=== PATIENT | female | born 1995 | race Hispanic/Latino ===

== ENCOUNTER 2018-01-09 10:59 | Emergency (ER) | payer MEDICAID ==
[2018-01-09 13:41] LABS: HCG Qualitative,Urine Positive (Negative)
--- NOTE | 2018-01-09 14:04 | Emergency Department Report ---
Chief Complaint: Abdominal Pain Stated Complaint: PREG./ABD PAIN Time Seen by Provider: 01/09/18 13:59 - HPI History of Present Illness: 22-year-old female presents to the emergency department with complaint of a few days of lower abdominal pain while . She had a home test that was positive about one month ago. She says her last menstrual cycle was sometime in August. The patient also complains of progressively worsening lower extremity swelling. She denies any chest pain, shortness of breath, fever. She is not on any vitamins and has not taken anything for her symptoms prior to presentation. She is not currently have any EVAPORATOR. - ROS Review of Systems: Positive for abdominal pain, lower extremity swelling, right calf pain Negative for vaginal bleeding, dysuria, vaginal discharge, chest pain or shortness of breath - Exam Vital Signs: Vital Signs 01/09/18 11:42 Temperature 98.5 F Pulse Rate 71 Blood Pressure 100/58 O2 Sat by Pulse 100 Oximetry Physical Exam: Patient does not appear in any acute distress. She does have bilateral lower extremity nonpitting swelling. Heart and lung sounds are normal to auscultation. MSE screening note: Focused history and physical exam performed. Due to findings the following was ordered: She will have a CBC, BMP and urinalysis. I have ordered bilateral lower extremity venous Dopplers to rule out DVT and an obstetric ultrasound. ED Disposition for MSE Condition: Stable Instructions: Abdominal Pain (ED) Referrals: PRIMARY CARE, [Primary Care Provider] - 3-5 Days
--- NOTE | 2018-01-09 14:11 | Emergency Department Report ---
ED General Adult HPI - General Chief complaint: Abdominal Pain Stated complaint: PREG./ABD PAIN Time Seen by Provider: 01/09/18 13:59 Source: patient Mode of arrival: Ambulatory Limitations: No Limitations - History of Present Illness Initial comments: This is a 22-year-old female who presents with abdominal cramping during . She had a home test that was positive about one month ago. She went out of town for a family emergency and was unable to make initial SERVICE SUPPORT REPRESENTATIVE appointment. Last menstrual. Was 09/18/2017. A1. The patient also complains of progressively worsening bilateral lower extremity swelling. There is some bruising to right calf and tenderness to touch. She denies any chest pain, shortness of breath, fever. She is not on any vitamins and has not taken anything for her symptoms prior to presentation. She is not currently have any SERVICE SUPPORT REPRESENTATIVE. Location: abdomen, lower extremity (bilateral lower extremity edema) Radiation: non-radiation Severity scale (0 -10): 4 Quality: other (cramping) Consistency: intermittent Improves with: none Worsens with: movement Associated Symptoms: denies other symptoms Treatments Prior to Arrival: none - Related Data Allergies Allergy/AdvReac Type Severity Reaction Status Date / Time No Known Allergies Allergy Verified 01/09/18 11:41 ED Review of Systems ROS: Stated complaint: PREG./ABD PAIN Other details as noted in HPI Constitutional: denies: chills, fever Respiratory: denies: cough, shortness of breath, wheezing Cardiovascular: edema (bilateral lower extremity). denies: chest pain, palpitations Gastrointestinal: abdominal pain (abdominal cramping generalized). denies: nausea, vomiting, diarrhea Musculoskeletal: denies: back pain, joint swelling, arthralgia Neurological: denies: headache, weakness, numbness, paresthesias Psychiatric: denies: anxiety, depression ED Past Medical Hx - Past Medical History Previous Medical History?: No - Surgical History Past Surgical History?: No - Social History Smoking Status: Never Smoker Substance Use Type: None ED Physical Exam - General Limitations: No Limitations General appearance: alert, in no apparent distress - Respiratory Respiratory exam: Present: normal lung sounds bilaterally. Absent: respiratory distress - Cardiovascular Cardiovascular Exam: Present: regular rate, normal rhythm, normal heart sounds. Absent: systolic murmur, diastolic murmur, rubs, gallop - GI/Abdominal GI/Abdominal exam: Present: soft, normal bowel sounds. Absent: organomegaly, mass - Extremities Exam Extremities exam: Present: normal inspection, full ROM, normal capillary refill , pedal edema, calf tenderness (1 cm eccymosis medial right calf, tenderness) - Neurological Exam Neurological exam: Present: alert, oriented X3, normal gait - Psychiatric Psychiatric exam: Present: normal affect, normal mood - Skin Skin exam: Present: warm, dry, intact, normal color. Absent: rash ED Course Vital Signs 01/09/18 11:42 Temperature 98.5 F Pulse Rate 71 Blood Pressure 100/58 O2 Sat by Pulse 100 Oximetry ED Medical Decision Making - Lab Data Result diagrams: 01/09/18 15:25 01/09/18 15:25 - Radiology Data Radiology results: report reviewed OB ULTRASOUND GREATER THAN 14 WEEKS INDICATION: , abdominal pain. COMPARISON: None similar at this institution. TECHNIQUE: Transabdominal grayscale ultrasound with Doppler interrogation. Gestation: Dalal Position: Variable Amniotic Fluid: WNL (< 24 weeks, subjective) Placenta: Posterior, fundal Placental Grade: 0 Heart Rate: 137 BPM Cervical length: 5.1 cm (Normal > 3 cm) It is too early for a anatomical survey BPD: 3.6 cm = 17 w 1 d HC: 13.5 cm = 17 w 0 d AC: 11.4 cm = 17 w 1 d FL: 2.1 cm = 16 w 1 d HC/AC Ratio: 1.18 Cephalic Index: 84.2 Estimated Weight: 168 grams Clinical age = 16 w 1 d EDC: 06/25/2018 US Gest. Age = 16 w 6 d EDC: 06/20/2018 CONCLUSION: Single, viable intrauterine gestation with ultrasound estimated age of 16 weeks and 6 days and EDC of 06/20/2018, currently in variable lie with details, as above. BLE VENOUS DUPLEX COMPLETED. VAS LAB PRELIMINARY REPORT; NO EVIDENCE OF DVT/SVT NOTED IN VESSELS/SEGMENTS EXAMINED, BLE. PHYSICIANS REPORT TO FOLLOW...(RSK) - Medical Decision Making 22 y.o. female presents with abdominal cramping and bilateral lower extremity edema. Patient examined by me and Dr. Delgadillo. Vitals normal and in no acute distress. Currently she is not followed by SERVICE SUPPORT REPRESENTATIVE and not taking vitamins. Obtained CBC, BMP, UA, urine hCG, & doppler BLE. OB US: Single, viable intrauterine gestation with ultrasound estimated age of 16 weeks and 6 days and EDC of 06/20/2018, currently in variable lie with details, as above. BLE VENOUS DUPLEX COMPLETED. VAS LAB PRELIMINARY REPORT; NO EVIDENCE OF DVT/SVT NOTED IN VESSELS/SEGMENTS EXAMINED, BLE. PHYSICIANS REPORT TO FOLLOW...( RSK). She had appointment with [facility]. Referrals to SERVICE SUPPORT REPRESENTATIVE. Discharged home stable. Instructed to elevate legs while sitting and avoid riding in cars for long period of times. Follow up with [facility] and OB /MARKETING OPERATIONS ASSISTANT in 48-72 hours. Critical care attestation.: If time is entered above; I have spent that time in minutes in the direct care of this critically ill patient, excluding procedure time. ED Disposition Clinical Impression: Pedal edema Abdominal pain during Qualifiers: Trimester: second trimester Qualified Code(s): O26.892 - Other specified related conditions, second trimester; R10.9 - Unspecified abdominal pain Disposition: - TO HOME OR SELFCARE Is pt being admited?: No Does the pt Need Aspirin: No Condition: Stable Instructions: Abdominal Pain (ED), (ED) Additional Instructions: Start taking an [id number] vitamins daily. Follow-up with SERVICE SUPPORT REPRESENTATIVE from referrals in 2-5 days. Elevate legs while sitting to improve swelling. Avoid riding in cars for a long period of time. If he can't get an SERVICE SUPPORT REPRESENTATIVE follow-up with [facility] in the next few days. Referrals: [facility] [Provider Group] - 3-5 Days [facility]MARKETING OPERATIONS ASSIST[facility] [Provider Group] - 3-5 Days [facility] [Outside] - 3-5 Days Time of Disposition: 17:24 Print Language: BARBADIAN
[2018-01-09 15:41] LABS: Basophils % (Auto) 0.4 % (0.0-1.8); Eosinophils % (Auto) 0.6 % (0.0-4.3); Hematocrit 32.6 % (30.3-42.9); Lymphocytes # (Auto) 1.3 K/mm3 (1.2-5.4); Lymphocytes % (Auto) 19.3 % (13.4-35.0); Mean Corpuscular HGB Conc 34 % (30-34); Mean Corpuscular Hemoglobin 31 pg (28-32); Mean Corpuscular Volume 92 fl (79-97); Monocytes # (Auto) 0.5 K/mm3 (0.0-0.8); Monocytes % (Auto) 7.1 % (0.0-7.3); Platelet Count 155 K/mm3 (140-440); Red Blood Count 3.55 M/mm3 (3.65-5.03); Red Cell Distribution Width 13.8 % (13.2-15.2)
--- NOTE | 2018-01-09 15:54 | Ultrasound Report ---
OB ULTRASOUND GREATER THAN 14 WEEKS INDICATION: , abdominal pain. COMPARISON: None similar at this institution. TECHNIQUE: Transabdominal grayscale ultrasound with Doppler interrogation. Gestation: Dalal Position: Variable Amniotic Fluid: WNL (< 24 weeks, subjective) Placenta: Posterior, fundal Placental Grade: 0 Heart Rate: 137 BPM Cervical length: 5.1 cm (Normal > 3 cm) It is too early for a anatomical survey BPD: 3.6 cm = 17 w 1 d HC: 13.5 cm = 17 w 0 d AC: 11.4 cm = 17 w 1 d FL: 2.1 cm = 16 w 1 d HC/AC Ratio: 1.18 Cephalic Index: 84.2 Estimated Weight: 168 grams Clinical age = 16 w 1 d EDC: 06/25/2018 US Gest. Age = 16 w 6 d EDC: 06/20/2018 CONCLUSION: Single, viable intrauterine gestation with ultrasound estimated age of 16 weeks and 6 days and EDC of 06/20/2018, currently in variable lie with details, as above. Thank you for the opportunity to participate in this patient's care.
[2018-01-09 16:01] LABS: BUN/Creatinine Ratio 16; Blood Urea Nitrogen 8 mg/dL (7-17); Calcium 8.8 mg/dL (8.4-10.2); Hemolysis Index 14
[2018-01-09 17:33] VITALS: BP 108/58
== END 2018-01-09 17:32 | disposition home or self-care (01) ==
LOC: ED 10:59
DX: O26.892 Other specified pregnancy related conditions, second trimester (principal); R10.9 Unspecified abdominal pain; R60.9 Edema, unspecified; Z3A.14 14 weeks gestation of pregnancy
CPT/HCPCS: 36415; 76801; 80048; 81025; 85025; 87086; 93970